=== PATIENT | male | born 1985 | race Caucasian/White ===

== ENCOUNTER → 2019-08-15 | Outpatient (CLI) | payer BC ==
[2019-08-15 13:47] LABS: HCT 46.7 % (39.0-53.0); HGB 15.3 gm/dL (13.0-17.5); MCH 29.5 pg (25.0-35.0); MCHC 32.7 g/dL (31.0-37.0); MCV 90.3 fL (80.0-100.0); Mean Platelet Volume 6.7; Platelet Count 380 k/uL (150-450); RBC 5.17 m/uL (4.30-5.90); RDW 13.3 % (11.5-15.5); WBC 11.5 k/uL (3.8-10.6)
[2019-08-16 00:10] LABS: African American GFR (CKD) 90.3 (60.0-200.0); Albumin 4.9 g/dL (3.80-4.90); Albumin/Globulin Ratio 2.13 (1.60-3.17); Anion Gap 10.1 mmol/L (4.00-12.00); Calcium 9.8 mg/dL (8.7-10.3); Carbon Dioxide 26.9 mmol/L (21.6-31.8); Chol/HDL Ratio 4.86; Globulin 2.3 g/dL (1.6-3.3); Non-African American GFR(CKD) 77.9 (60.0-200.0); Potassium 4.7 mmol/L (3.5-5.5); Total Bilirubin 0.9 mg/dL (0.2-1.2); Total Protein 7.2 g/dL (6.2-8.2)
[2019-08-16 00:18] LABS: T4, Free (Free Thyroxine) 1.3 ng/dL (0.80-1.80)
[2019-08-16 14:43] LABS: APTT 43 Sec(s) (<43); DRVVT 1:1 Mix 40 Sec(s) (<44); Dilute Russell Viper Venom 51 Sec(s) (<44)
== END | disposition home or self-care (01) ==
LOC: LABWHC1 12:24
PROVIDERS: ATTEND Family Medicine
DX: Z00.00 Encounter for general adult medical examination without abnormal findings (principal); R21 Rash and other nonspecific skin eruption
CPT/HCPCS: 36415; 80053; 80061; 84439; 84443; 85027; 85613; 85730; 86038